=== PATIENT | male | born 1985 | race Caucasian/White ===

== ENCOUNTER 2020-08-17 21:39 | Emergency (ER) | payer MEDICAID ==
[2020-08-17] MEDS ORDERED: Baclofen 10 MG Tab PO ONE (22:04)
[2020-08-17] MEDS ORDERED: Ibuprofen 600 MG Tab PO ONE (22:05)
--- NOTE | 2020-08-17 22:11 | EDM.PDOC ---
ED HPI GENERAL MEDICAL PROBLEM - General Chief Complaint: Back Pain or Injury Stated Complaint: BACK SPASMS Time Seen by Provider: 08/17/20 22:05 Source of Information: Reports: Patient History Limitations: Reports: No Limitations - History of Present Illness INITIAL COMMENTS - FREE TEXT/NARRATIVE: Patient complains of right upper back pain x 1 week. It feels like a muscle spas m. Pain is relieved with stretching the right arm out to his side. Denies numbness, tingling, or weakness. Patient injured his lower back after falling down stairs @2 weeks ago, but did not have upper back pain at that time. The upper back pain began @1 week after the fall. He was prescribed Flexeril for the low back injury, this does improved the upper back pain, but only for @2 hours. He has not taken any NSAIDS. Patient has a prior history of DDD and arthritis of the lumbar spine. Duration: Week(s): (1) Location: Reports: Back Severity: Moderate - Related Data Allergies Allergy/AdvReac Type Severity Reaction Status Date / Time No Known Allergies Allergy Verified 08/17/20 22:06 Home Meds: Home Meds Baclofen 10 mg PO Q8H PRN #30 tablet 08/17/20 [Rx] Ibuprofen 600 mg PO Q6H PRN #30 tablet 08/17/20 [Rx] Past Medical History Musculoskeletal History: Reports: Back Pain, Chronic (Lumbar) ED ROS GENERAL - Review of Systems Review Of Systems: Comprehensive ROS is negative, except as noted in HPI. ED EXAM, UPPER BACK/NECK PAIN - Physical Exam Exam: See Below Exam Limited By: No Limitations General Appearance: Alert, WD/WN, No Apparent Distress Ears Exam: Normal External Exam Nose Exam: Normal Inspection Throat/Mouth Exam: No Airway Compromise Head Exam: Atraumatic, Normocephalic Neck Exam: Full Range of Motion Cardiovascular/Respiratory: Regular Rate, Rhythm, No M/R/G, Normal Breath Sounds, No Respiratory Distress Back Exam: Other (mild tenderness overlying right rhomboid muscle). No: Vertebral Tenderness Extremities: Normal Range of Motion, Normal Capillary Refill Neurologic: No Motor/Sensory Deficits, Alert, Normal Mood/Affect, Oriented x 3 DTR: 2+: Bicep (R), Bicep (L) Psychiatric: Normal Affect, Normal Mood Skin Exam: Normal Color, Warm/Dry Course - Vital Signs Last Recorded V/S: Last Vital Signs Temp 36.6 C 08/17/20 21:55 Pulse 84 08/17/20 21:55 Resp 18 08/17/20 21:55 BP 143/73 H 08/17/20 21:55 Pulse Ox 98 08/17/20 21:55 - Orders/Labs/Meds Meds: Medications Discontinued Medications Generic Name Dose Route Start Last Admin Trade Name Freq PRN Reason Stop Dose Admin Baclofen 10 mg 08/17/20 22:04 Lioresal PO 08/17/20 22:05 ONETIME ONE Ibuprofen 600 mg 08/17/20 22:05 Motrin PO 08/17/20 22:06 ONETIME ONE Departure - Departure Time of Disposition: 22:13 Disposition: Home, Self-Care 01 Condition: Good Clinical Impression: Upper back pain on right side - Discharge Information *PRESCRIPTION DRUG MONITORING PROGRAM REVIEWED*: Yes *COPY OF PRESCRIPTION DRUG MONITORING REPORT IN PATIENT JACKI: Not Applicable Prescriptions: Baclofen 10 mg PO Q8H PRN #30 tablet PRN Reason: Muscle Spasm Ibuprofen 600 mg PO Q6H PRN #30 tablet PRN Reason: Pain Instructions: Acute Back Pain, Adult, Muscle Strain, [id number] Forms: ED Department Discharge Additional Instructions: Fill the prescriptions for Baclofen and Ibuprofen at [facility] and take as directed. Follow up with your primary physician in 2-3 days if symptoms don't improve. Sepsis Event Note (ED) - Focused Exam Vital Signs: Vital Signs Temp Pulse Resp BP Pulse Ox 08/17/20 21:55 36.6 C 84 18 143/73 H 98
== END 2020-08-17 22:25 | disposition home or self-care (01) ==
LOC: FB.ED 21:39
DX: M54.6 Pain in thoracic spine (principal)
CPT/HCPCS: 99283; A9270-GY

== ENCOUNTER 2020-09-11 05:16 | Emergency (ER) | payer MEDICAID ==
[2020-09-11] MEDS ORDERED: Ketorolac 60 MG/2 ML SDV IM STA (06:00)
[2020-09-11] MEDS ORDERED: Cyclobenzaprine 10 MG Tab PO STA (06:00)
[2020-09-11] MEDS ORDERED: predniSONE 20 MG Tab PO STA (06:09)
--- NOTE | 2020-09-11 06:09 | EDM.PDOC ---
ED HPI GENERAL MEDICAL PROBLEM - General Chief Complaint: Back Pain or Injury Stated Complaint: BACK PAIN Time Seen by Provider: 09/11/20 05:30 Source of Information: Reports: Patient History Limitations: Reports: No Limitations - History of Present Illness INITIAL COMMENTS - FREE TEXT/NARRATIVE: Patient presented to the ED because of upper back pain. He fell sometime in Aug and since then his back has been hurting. The pain is sharp,8/10, and worse with movements. He is taking tylenol and baclofen without relief. Upper back Pain Score (Numeric/FACES): 8 - Related Data Allergies Allergy/AdvReac Type Severity Reaction Status Date / Time No Known Allergies Allergy Verified 09/11/20 05:32 Home Meds: Home Meds Baclofen 10 mg PO Q8H PRN #30 tablet 08/17/20 [Rx] Ibuprofen 600 mg PO Q6H PRN #30 tablet 08/17/20 [Rx] Ibuprofen 800 mg PO Q8H PRN #30 tablet 09/11/20 [Rx] predniSONE [Prednisone] 40 mg PO DAILY #10 tablet 09/11/20 [Rx] Past Medical History Gastrointestinal History: Reports: GERD Musculoskeletal History: Reports: Back Pain, Chronic, Fracture Other Musculoskeletal History: hx fx bilat wrists Psychiatric History: Reports: Anxiety, Depression Endocrine/Metabolic History: Reports: Obesity/BMI 30+ - Infectious Disease History Infectious Disease History: Reports: Chicken Pox - Past Surgical History HEENT Surgical History: Reports: Myringotomy w Tube(s), Tonsillectomy GI Surgical History: Reports: None Musculoskeletal Surgical History: Reports: None Social & Family History - Family History Family Medical History: No Pertinent Family History - Tobacco Use Tobacco Use Status *Q: Current Some Day Tobacco User Years of Tobacco use: 4 Packs/Tins Daily: 0.1 - Caffeine Use Caffeine Use: Reports: Soda, Tea - Alcohol Use Days Per Week of Alcohol Use: 7 Number of Drinks Per Day: 3 Total Drinks Per Week: 21 - Recreational Drug Use Recreational Drug Use: No ED ROS GENERAL - Review of Systems Review Of Systems: See Below Constitutional: Reports: No Symptoms HEENT: Reports: No Symptoms Respiratory: Reports: No Symptoms Cardiovascular: Reports: No Symptoms Endocrine: Reports: No Symptoms GI/Abdominal: Reports: No Symptoms : Reports: No Symptoms Musculoskeletal: Reports: Back Pain Skin: Reports: No Symptoms Neurological: Reports: No Symptoms Psychiatric: Reports: No Symptoms ED EXAM, UPPER BACK/NECK PAIN - Physical Exam Exam: See Below Exam Limited By: No Limitations General Appearance: Alert, No Apparent Distress Eye Exam: Bilateral Eye: PERRL Ears Exam: Normal External Exam, Normal Canal Nose Exam: Normal Inspection, Normal Mucousa, No Blood Throat/Mouth Exam: Normal Inspection, Normal Lips Head Exam: Atraumatic, Normocephalic Neck Exam: Non-Tender, Full Range of Motion, Normal Alignment Cardiovascular/Respiratory: Regular Rate, Rhythm, No M/R/G, Normal Peripheral Pulses, No JVD, Normal Breath Sounds, No Respiratory Distress GI/Abdominal: Normal Bowel Sounds, Soft, Non-Tender, No Organomegaly Back Exam: Normal Inspection, Muscle Spasm, Paraspinal Tenderness Extremities: Normal Inspection, Normal Range of Motion, Non-Tender Course - Vital Signs Text/Narrative:: Toradol 60 mg IM x1 Tramadol 100 mg PO x1 Prednisone 20 mg, 2 po x1 Flexeril 10 mg po x1 Last Recorded V/S: Last Vital Signs Temp 36.4 C 09/11/20 05:27 Pulse 71 09/11/20 05:27 Resp 18 09/11/20 05:27 BP 145/94 H 09/11/20 05:27 Pulse Ox 100 09/11/20 05:27 - Orders/Labs/Meds Meds: Medications Discontinued Medications Generic Name Dose Route Start Last Admin Trade Name Jaime PRN Reason Stop Dose Admin Cyclobenzaprine HCl 10 mg 09/11/20 06:00 09/11/20 06:16 Cyclobenzaprine 10 Mg Tab PO 09/11/20 06:01 Not Given NOW STA Ketorolac Tromethamine 60 mg 09/11/20 06:00 09/11/20 06:23 Ketorolac 60 Mg/2 Ml Sdv IM 09/11/20 06:01 60 mg NOW STA Administration Prednisone 40 mg 09/11/20 06:09 09/11/20 06:23 Prednisone 20 Mg Tab PO 09/11/20 06:10 40 mg NOW STA Administration Tramadol HCl 100 mg 09/11/20 06:14 09/11/20 06:23 Tramadol 50 Mg Tab PO 09/11/20 06:15 100 mg NOW STA Administration Departure - Departure Time of Disposition: 06:30 Disposition: Home, Self-Care 01 Condition: Good Clinical Impression: Chronic back pain - Discharge Information Prescriptions: Ibuprofen 800 mg PO Q8H PRN #30 tablet PRN Reason: Pain predniSONE [Prednisone] 40 mg PO DAILY #10 tablet Instructions: Chronic Back Pain, [id number] Referrals: PCP,Segun [Primary Care Provider] - Forms: ED Department Discharge Additional Instructions: Please read discharge instructions on back pain Apply heat Take all the following medications all at the same time for better pain relief: Ibuprofen 800mg, tylenol 1000 mg and baclofen 10 mg every 8 hours as needed for pain and spasms Prednisone 20 mg, 2 tablets every morning for 5 days(starting 09/12/20) Followup with Dr Carson because we don't do follow up in the ED Sepsis Event Note (ED) - Evaluation Sepsis Screening Result: No Definite Risk
[2020-09-11] MEDS ORDERED: traMADol 50 MG Tab PO STA (06:14)
== END 2020-09-11 06:30 | disposition home or self-care (01) ==
LOC: FB.ED 05:16
DX: G89.29 Other chronic pain (principal); M54.6 Pain in thoracic spine; E66.9 Obesity, unspecified; Z68.32 Body mass index [BMI] 32.0-32.9, adult; Z72.0 Tobacco use
CPT/HCPCS: 96372; 99283; A9270-GY; J1885; J7512

== ENCOUNTER 2021-01-23 07:54 | Emergency (ER) | payer BC, MEDICAID ==
[2021-01-23] MEDS ORDERED: methylPREDNISolone Sodium Succinate 125 MG/2 ML SDV IM ONE (08:37)
[2021-01-23] MEDS ORDERED: Ketorolac 30 MG/ML SDV IM ONE (08:37)
--- NOTE | 2021-01-23 08:43 | EDM.PDOC ---
ED HPI GENERAL MEDICAL PROBLEM - General Stated Complaint: BACK PAIN Time Seen by Provider: 01/23/21 08:05 Source of Information: Reports: Patient History Limitations: Reports: No Limitations - History of Present Illness INITIAL COMMENTS - FREE TEXT/NARRATIVE: c/o low back pain x 1w pain over the lower sacrum in the midline x 1w, no radiation he began a new job 2w ago, lifts over 100 lbs, usually has a partner, however 6d ago his partner did not show up and he lifted by himself he missed work the past 2d, was seen at [facility] by Margaret Piña yesterday who gave him prednisone 20 mg daily for 5 days and cyclobenzaprine 10 mg TID x 10 days he has a prior Rx for meloxicam 15 mg daily that he got 3 wks ago altho it sounds like he is not taking it he had previously gotten gabapentin 300 mg from [email or web address] and took one of those this morning an MRI of t-spine from 11-29-20 showed mild DJD, small dis protrusions at 3 levels after MRI pt referred to neurosurgery in [place] whom he will see next week, no c/o upper back pain today pt works 6:30a to 5p,m had too much pain to go to work today, he asked several times for a steroid shot which he says has helped he has gone to PT and says the just have him do stretching, heat and TENS that "I can do at home" Back Pain Score (Numeric/FACES): 6 - Related Data Allergies Allergy/AdvReac Type Severity Reaction Status Date / Time No Known Allergies Allergy Verified 09/11/20 05:32 Home Meds: Home Meds Baclofen 10 mg PO Q8H PRN #30 tablet 08/17/20 [Rx] Ibuprofen 600 mg PO Q6H PRN #30 tablet 08/17/20 [Rx] Ibuprofen 800 mg PO Q8H PRN #30 tablet 09/11/20 [Rx] predniSONE [Prednisone] 40 mg PO DAILY #10 tablet 09/11/20 [Rx] Past Medical History Gastrointestinal History: Reports: GERD Musculoskeletal History: Reports: Back Pain, Chronic, Fracture Other Musculoskeletal History: hx fx bilat wrists Psychiatric History: Reports: Anxiety, Depression Endocrine/Metabolic History: Reports: Obesity/BMI 30+ - Infectious Disease History Infectious Disease History: Reports: Chicken Pox - Past Surgical History HEENT Surgical History: Reports: Myringotomy w Tube(s), Tonsillectomy GI Surgical History: Reports: None Musculoskeletal Surgical History: Reports: None Social & Family History - Family History Family Medical History: No Pertinent Family History - Tobacco Use Tobacco Use Status *Q: Never Tobacco User Second Hand Smoke Exposure: No - Caffeine Use Caffeine Use: Reports: None - Recreational Drug Use Recreational Drug Use: No ED ROS GENERAL - Review of Systems Review Of Systems: See Below Constitutional: Reports: No Symptoms HEENT: Reports: No Symptoms Respiratory: Reports: No Symptoms Cardiovascular: Reports: No Symptoms Endocrine: Reports: No Symptoms GI/Abdominal: Reports: No Symptoms : Reports: No Symptoms Musculoskeletal: Reports: Back Pain Skin: Reports: No Symptoms Neurological: Reports: No Symptoms Psychiatric: Reports: No Symptoms Hematologic/Lymphatic: Reports: No Symptoms Immunologic: Reports: No Symptoms ED EXAM,LOWER BACK PAIN/INJURY - Physical Exam Exam: See Below Exam Limited By: No Limitations General Appearance: Alert, WD/WN Back Exam: Other (no pain along length of spine except 1+ at lower sacrum in midline at ~S3, no SI joint tender b/l, no iliac crest tender, no msl spasm) Neurological: Alert, Normal Dorsiflexion, CN II-XII Intact, Normal Reflexes, No Motor/Sensory Deficits Comments: brisk 2+ patella and Achilles DTRs b/l, great toe extension 5/5, SLR 80 degrees b/l without limitation Course - Vital Signs Last Recorded V/S: Last Vital Signs Temp 36.8 C 01/23/21 08:07 Pulse 60 01/23/21 08:07 Resp 16 01/23/21 08:07 BP 120/50 L 01/23/21 08:07 Pulse Ox 96 01/23/21 08:07 - Re-Assessments/Exams Free Text/Narrative Re-Assessment/Exam: 01/23/21 08:56 pain at sacral ligaments today has had upper back pain that sounds muscular in origin, altho not an issue today pt has incidental small disc protrusions on MRI from 2m ago of t-spine without clinical evidence of radiculopathy at any level Departure - Departure Time of Disposition: 08:36 Disposition: Home, Self-Care 01 Clinical Impression: Sacral back pain - Discharge Information *PRESCRIPTION DRUG MONITORING PROGRAM REVIEWED*: Not Applicable *COPY OF PRESCRIPTION DRUG MONITORING REPORT IN PATIENT JACKI: Not Applicable Instructions: Chronic Back Pain Additional Instructions: The pain today is over the lower sacrum in the midline, which is a ligament pain. Anti-inflammatories work best for ligament pain. For inflammation, take the meloxicam 15 mg 1 tab daily for 10 days. For inflammation, take acetaminophen 500 mg 2 tabs 3 times a day. For inflammation, continue the prednisone 20 mg 1 tab daily for 4 more days. Skip a dose today as you were given an intramuscular injection of Solu-Medrol, which is an injectable form of a steroid (prednisone only comes in a pill form). Cyclobenzaprine can be helpful for muscle pain, which you do not have today. Gabapentin can be helpful for nerve pain, which you do not have today. Ice (and sometimes heat) can be helpful for inflammation. Use ice for 10 minutes when you get home from work and again later in the evening. Ice can help during the middle of the day as well. See Dr Magallanes next week for ongoing recommendations. See the neurosurgeon next week as scheduled. Sepsis Event Note (ED) - Evaluation Sepsis Screening Result: No Definite Risk - Focused Exam Vital Signs: Vital Signs Temp Pulse Resp BP Pulse Ox 01/23/21 08:07 36.8 C 60 16 120/50 L 96
== END 2021-01-23 08:55 | disposition home or self-care (01) ==
LOC: FB.ED 07:54
DX: M53.3 Sacrococcygeal disorders, not elsewhere classified (principal); E66.9 Obesity, unspecified; Z68.34 Body mass index [BMI] 34.0-34.9, adult
CPT/HCPCS: 96372; 99283; J1885; J2930

== ENCOUNTER 2021-03-28 07:46 | Emergency (ER) | payer MEDICAID ==
[2021-03-28] MEDS ORDERED: Ondansetron 4 MG/2 ML SDV IVPUSH ONE (08:04)
[2021-03-28] MEDS ORDERED: Ketorolac 30 MG/ML SDV IVPUSH ONE (08:05)
[2021-03-28] MEDS ORDERED: diphenhydrAMINE 50 MG/ML SDV IVPUSH ONE (08:05)
--- NOTE | 2021-03-28 08:14 | EDM.PDOC ---
ED HPI GENERAL MEDICAL PROBLEM - General Chief Complaint: General Stated Complaint: ALLERGIC REACTION Time Seen by Provider: 03/28/21 07:55 Source of Information: Reports: Patient, Family History Limitations: Reports: No Limitations - History of Present Illness INITIAL COMMENTS - FREE TEXT/NARRATIVE: c/o n/v pt with panic attacks, last occurred 1w ago and went away on his own has been working x 6m with counseling at [facility] [facility] in [place], has been going as well [facility] began him on Lexapro 3d ago, had been on 2 other SSRIs in the past per works at [employer] ate supper last night, works 10p to 5a, felt fine until 4a when developed N, later vomiting says he feels like he is vibrating, hands are tingling, hyperventilating, was impatient and impolite with RN PMH: bipolar, anxiety, panic attacks per pt PCP: Dr Hanna, last saw 2m ago drinks alcohol daily, usually hard liquor, no alcohol in past 3d Bilateral Hand Pain Score (Numeric/FACES): 10 - Related Data Allergies Allergy/AdvReac Type Severity Reaction Status Date / Time No Known Allergies Allergy Verified 09/11/20 05:32 Home Meds: Home Meds Escitalopram Oxalate 5 mg PO DAILY 03/28/21 [History] Ondansetron [Ondansetron ODT] 4 mg PO Q6H PRN #8 tab.rapdis 03/28/21 [Rx] Potassium Chloride 20 meq PO DAILY #3 tablet.er 03/28/21 [Rx] QUEtiapine [SEROquel] 50 mg PO DAILY PRN 03/28/21 [History] hydrOXYzine HCL [Hydroxyzine HCl] 25 mg PO ASDIRECTED PRN 03/28/21 [History] Past Medical History Gastrointestinal History: Reports: GERD Musculoskeletal History: Reports: Back Pain, Chronic, Fracture Other Musculoskeletal History: hx fx bilat wrists Psychiatric History: Reports: Anxiety, Depression Endocrine/Metabolic History: Reports: Obesity/BMI 30+ - Infectious Disease History Infectious Disease History: Reports: Chicken Pox - Past Surgical History HEENT Surgical History: Reports: Myringotomy w Tube(s), Tonsillectomy GI Surgical History: Reports: None Musculoskeletal Surgical History: Reports: None Social & Family History - Family History Family Medical History: No Pertinent Family History - Caffeine Use Caffeine Use: Reports: None ED ROS GENERAL - Review of Systems Review Of Systems: See Below Constitutional: Reports: No Symptoms HEENT: Reports: No Symptoms Respiratory: Reports: No Symptoms Cardiovascular: Reports: No Symptoms Endocrine: Reports: No Symptoms GI/Abdominal: Reports: No Symptoms : Reports: No Symptoms Musculoskeletal: Reports: No Symptoms Skin: Reports: No Symptoms Neurological: Reports: No Symptoms Psychiatric: Reports: No Symptoms Hematologic/Lymphatic: Reports: No Symptoms Immunologic: Reports: No Symptoms ED EXAM, GENERAL - Physical Exam Exam: See Below Exam Limited By: No Limitations General Appearance: Alert, WD/WN, Anxious Ears: Normal External Exam, Hearing Grossly Normal Ear Exam: Bilateral Ear: Auricle Normal, Canal Normal, TM normal Nose: Normal Inspection, Normal Mucosa, No Blood Throat/Mouth: Normal Inspection, Normal Lips, Normal Teeth, Normal Voice, No Airway Compromise Head: Atraumatic, Normocephalic Neck: Normal Inspection, Supple, Non-Tender, Full Range of Motion Respiratory/Chest: No Respiratory Distress, Lungs Clear, Normal Breath Sounds, No Accessory Muscle Use Cardiovascular: Normal Peripheral Pulses, Regular Rate, Rhythm, No Edema, No Gallop, No Rub GI/Abdominal: Normal Bowel Sounds, Soft, Non-Tender, No Organomegaly, No Distention, No Mass Back Exam: Normal Inspection, Full Range of Motion, NT Extremities: Normal Inspection, Normal Range of Motion, Non-Tender, No Pedal Edema Neurological: Alert, Oriented, CN II-XII Intact, Normal Cognition, Normal Gait, No Motor/Sensory Deficits Psychiatric: Anxious Skin Exam: Warm, Dry, Intact, Normal Color, No Rash Lymphatic: No Adenopathy Course - Vital Signs Last Recorded V/S: Last Vital Signs Temp 36.2 C 03/28/21 07:47 Pulse 61 03/28/21 07:47 Resp 32 H 03/28/21 07:47 BP 154/81 H 03/28/21 07:47 Pulse Ox 100 03/28/21 07:47 - Orders/Labs/Meds Orders: Active Orders 24 hr Category Date Time Status DRUG SCREEN, URINE [URCHEM] Stat Lab 03/28/21 08:08 Ordered UA W/MICROSCOPIC [URIN] Stat Lab 03/28/21 08:08 Ordered Sodium Chloride 0.9% [Normal Saline] 1,000 ml Med 03/28/21 08:15 Ordered IV ASDIRECTED Sodium Chloride 0.9% [Normal Saline] 1,000 ml Med 03/28/21 09:15 Ordered IV ASDIRECTED Medication Orders Sodium Chloride (Normal Saline) 1,000 mls @ 999 mls/hr IV ASDIRECTED ARISTEO Last Admin: 03/28/21 08:18 Dose: 999 mls/hr Documented by: ELSA Sodium Chloride (Normal Saline) 1,000 mls @ 999 mls/hr IV ASDIRECTED ARISTEO Labs: Laboratory Tests 03/28/21 03/28/21 03/28/21 Range/Units 08:22 08:22 08:22 WBC 11.5 H (3.2-10.1) x10-3/uL RBC 5.07 (3.90-5.90) x10(6)uL Hgb 15.5 (12.9-17.7) g/dL Hct 45.4 (38.3-50.1) % MCV 89.5 (80.8-98.7) fL MCH 30.6 (27.0-33.3) pg MCHC 34.2 (28.7-35.3) g/dL RDW 13.8 (12.4-15.0) % Plt Count 226 (117-477) x10(3)uL MPV 10.8 (6.7-11.0) fL Neut % (Auto) 68.4 (40.3-71.8) % Lymph % (Auto) 21.5 (15.8-45.3) % [place] % (Auto) 8.9 (5.5-15.2) % Eos % (Auto) 0.8 (0.1-6.8) % Baso % (Auto) 0.4 (0.3-3.8) % Neut # (Auto) 7.9 H (1.7-6.9) x10-3/uL Lymph # (Auto) 2.5 (0.5-4.5) x10-3/uL [place] # (Auto) 1.0 (0.0-1.2) x10-3/uL Eos # (Auto) 0.1 (0.0-0.6) x10-3/uL Baso # (Auto) 0.1 (0.0-0.3) x10-3/uL Sodium 139 (135-145) mmol/L Potassium 3.4 L (3.5-5.3) mmol/L Chloride 104 (100-110) mmol/L Carbon Dioxide 15 L (21-32) mmol/L BUN 15 (7-18) mg/dL Creatinine 1.3 (0.70-1.30) mg/dL Est Cr Clr Drug Dosing 84.47 mL/min Estimated GFR (MDRD) > 60 (>60) BUN/Creatinine Ratio 11.5 (9-20) Glucose 170 H (80-116) mg/dL Calcium 9.1 (8.6-10.2) mg/dL Total Bilirubin 1.4 H (0.1-1.3) mg/dL AST 35 H (5-25) IU/L ALT 40 H (12-36) U/L Alkaline Phosphatase 70 (56-112) IU/L C-Reactive Protein 0.4 L (0.5-0.9) mg/dL Total Protein 7.6 (6.0-8.0) g/dL Albumin 4.3 (3.5-5.2) g/dL Globulin 3.3 g/dL Albumin/Globulin Ratio 1.3 TSH, Ultra Sensitive (0.36-3.74) IU/mL 03/28/21 Range/Units 08:37 WBC (3.2-10.1) x10-3/uL RBC (3.90-5.90) x10(6)uL Hgb (12.9-17.7) g/dL Hct (38.3-50.1) % MCV (80.8-98.7) fL MCH (27.0-33.3) pg MCHC (28.7-35.3) g/dL RDW (12.4-15.0) % Plt Count (117-477) x10(3)uL MPV (6.7-11.0) fL Neut % (Auto) (40.3-71.8) % Lymph % (Auto) (15.8-45.3) % [place] % (Auto) (5.5-15.2) % Eos % (Auto) (0.1-6.8) % Baso % (Auto) (0.3-3.8) % Neut # (Auto) (1.7-6.9) x10-3/uL Lymph # (Auto) (0.5-4.5) x10-3/uL [place] # (Auto) (0.0-1.2) x10-3/uL Eos # (Auto) (0.0-0.6) x10-3/uL Baso # (Auto) (0.0-0.3) x10-3/uL Sodium (135-145) mmol/L Potassium (3.5-5.3) mmol/L Chloride (100-110) mmol/L Carbon Dioxide (21-32) mmol/L BUN (7-18) mg/dL Creatinine (0.70-1.30) mg/dL Est Cr Clr Drug Dosing mL/min Estimated GFR (MDRD) (>60) BUN/Creatinine Ratio (9-20) Glucose (80-116) mg/dL Calcium (8.6-10.2) mg/dL Total Bilirubin (0.1-1.3) mg/dL AST (5-25) IU/L ALT (12-36) U/L Alkaline Phosphatase (56-112) IU/L C-Reactive Protein (0.5-0.9) mg/dL Total Protein (6.0-8.0) g/dL Albumin (3.5-5.2) g/dL Globulin g/dL Albumin/Globulin Ratio TSH, Ultra Sensitive 1.60 (0.36-3.74) IU/mL Meds: Medications Generic Name Dose Route Start Last Admin Trade Name Freq PRN Reason Stop Dose Admin Sodium Chloride 1,000 mls @ 999 mls/hr 03/28/21 08:15 03/28/21 08:18 Normal Saline IV 999 mls/hr ASDIRECTED ARISTEO Administration Sodium Chloride 1,000 mls @ 999 mls/hr 03/28/21 09:15 Normal Saline IV ASDIRECTED ARISTEO Discontinued Medications Generic Name Dose Route Start Last Admin Trade Name Freq PRN Reason Stop Dose Admin Diphenhydramine HCl 50 mg 03/28/21 08:05 03/28/21 08:18 Diphenhydramine 50 Mg/Ml Sdv IVPUSH 03/28/21 08:06 50 mg ONETIME ONE Administration Ketorolac Tromethamine 30 mg 03/28/21 08:05 03/28/21 08:18 Ketorolac 30 Mg/Ml Sdv IVPUSH 03/28/21 08:06 30 mg ONETIME ONE Administration Metoclopramide HCl 10 mg 03/28/21 08:38 03/28/21 08:44 Metoclopramide 10 Mg/2 Ml Sdv IVPUSH 03/28/21 08:39 10 mg ONETIME ONE Administration Ondansetron HCl 4 mg 03/28/21 08:04 03/28/21 08:18 Ondansetron 4 Mg/2 Ml Sdv IVPUSH 03/28/21 08:05 4 mg ONETIME ONE Administration - Re-Assessments/Exams Free Text/Narrative Re-Assessment/Exam: 03/28/21 09:51 pt rested and fell asleep, Dr Magallanes PCP is on hospital duty and was informed of pt's visit arranged f/u with Vivian Velasquez PA-C at [facility] in 3d had a Zoom meeting with Vivian at 9a today and conducted the meeting while pt was here resting I requested to speak with Vivian and left my name and phone number altho did not receive a call back, not clear if passed along my message I called Vivian at 8:59a, was told she was with a client, and requested a call back will replace K will provide prn ondansetron will do scheduled (rather than prn) quetiapine and hydroxyzine pending further d/w Vivian in 3d 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, always hyster machine operator, 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 pt and aware that he can return to ED at any time if his sxs worsen 03/28/21 10:30 Vivian called back, given an update on pt's panic attack and labs and tx plan, she said she would f/u in 3 days at f/u visit Departure - Departure Time of Disposition: 09:42 Disposition: Home, Self-Care 01 Condition: Good Clinical Impression: Panic attack, Elevated WBC count, Serum carbon dioxide decreased, Dehydration, Hyperglycemia, Elevated liver function tests, Hypokalemia - Discharge Information *PRESCRIPTION DRUG MONITORING PROGRAM REVIEWED*: Not Applicable *COPY OF PRESCRIPTION DRUG MONITORING REPORT IN PATIENT JACKI: Not Applicable Prescriptions: Ondansetron [Ondansetron ODT] 4 mg PO Q6H PRN #8 tab.rapdis PRN Reason: Nausea Potassium Chloride 20 meq PO DAILY #3 tablet.er Instructions: Managing Anxiety, Adult, Rehydration, Adult, Panic Attack Referrals: Nolan Hanna DO [Primary Care Provider] - Forms: ED Department Discharge Additional Instructions: Increase fluids. Get adequate rest. To replace potassium, take potassium chloride 20 meq 1 tab daily for 3 days. For nausea, take ondansetron ODT 4 mg 1 tab every 6 hours as needed. For sleep, take quetiapine 50 mg at time of sleep daily for 4 days until you receive additional instructions from Vivian. For anxiety, take hydroxyzine 25 mg 2 tabs 3 times a day for 4 days until you receive additional instructions from Vivian. May work tonight if you rest today and are feeling better this evening. Return to Emergency Department if you are feeling worse. Sepsis Event Note (ED) - Evaluation Sepsis Screening Result: No Definite Risk - Focused Exam Vital Signs: Vital Signs Temp Pulse Resp BP Pulse Ox 03/28/21 07:47 36.2 C 61 32 H 154/81 H 100 - My Orders Last 24 Hours: My Active Orders 03/28/21 08:08 DRUG SCREEN, URINE [URCHEM] Stat UA W/MICROSCOPIC [URIN] Stat 03/28/21 08:15 Sodium Chloride 0.9% [Normal Saline] 1,000 ml IV ASDIRECTED 03/28/21 09:15 Sodium Chloride 0.9% [Normal Saline] 1,000 ml IV ASDIRECTED - Assessment/Plan Last 24 Hours: My Active Orders 03/28/21 08:08 DRUG SCREEN, URINE [URCHEM] Stat UA W/MICROSCOPIC [URIN] Stat 03/28/21 08:15 Sodium Chloride 0.9% [Normal Saline] 1,000 ml IV ASDIRECTED 03/28/21 09:15 Sodium Chloride 0.9% [Normal Saline] 1,000 ml IV ASDIRECTED
[2021-03-28] MEDS ORDERED: Sodium Chloride 0.9% 1,000 ML IV SCH ×2 (08:15→09:15)
[2021-03-28] MEDS ORDERED: Metoclopramide 10 MG/2 ML SDV IVPUSH ONE (08:38)
== END 2021-03-28 09:58 | disposition home or self-care (01) ==
LOC: FB.ED 07:46 → SUPCPDRO 07:46 → FB.ED 09:58
DX: E86.0 Dehydration (principal); F41.0 Panic disorder [episodic paroxysmal anxiety]; D72.829 Elevated white blood cell count, unspecified; R73.9 Hyperglycemia, unspecified; E87.6 Hypokalemia; E66.9 Obesity, unspecified; Z68.30 Body mass index [BMI] 30.0-30.9, adult; Z79.899 Other long term (current) drug therapy
CPT/HCPCS: 36415; 80053; 84443; 85025; 86140; 96374; 96375; 99284; J1200; J1885; J2405; J2765; J7030

== ENCOUNTER 2021-04-01 09:08 | Emergency (ER) | payer MEDICAID ==
[2021-04-01] MEDS ORDERED: Ondansetron 4 MG/2 ML SDV IVPUSH ONE (09:15)
[2021-04-01] MEDS ORDERED: LORazepam 2 MG/ML SDV IV ONE (09:33)
[2021-04-01] MEDS: Ondansetron 4 MG/2 ML SDV ONE ×2 (09:39→09:45)
[2021-04-01] MEDS ORDERED: Sodium Chloride 0.9% 1,000 ML IV SCH (09:45)
[2021-04-01] MEDS ORDERED: Pantoprazole 40 MG Vial IVPUSH STA (10:17)
[2021-04-01] MEDS ORDERED: Metoclopramide 10 MG/2 ML SDV IVPUSH STA (10:17)
[2021-04-01] MEDS ORDERED: Diazepam 5 MG Tab PO STA (10:20)
--- NOTE | 2021-04-01 10:26 | EDM.PDOC ---
ED HPI GENERAL MEDICAL PROBLEM - General Chief Complaint: Gastrointestinal Problem Stated Complaint: N/V Time Seen by Provider: 04/01/21 09:10 Source of Information: Reports: Patient, Family History Limitations: Reports: No Limitations - History of Present Illness INITIAL COMMENTS - FREE TEXT/NARRATIVE: Patient presented to the ED because of binge drinking whiskey but quit 8 days ago. He c/o epigastric pain, nausea, vomiting. He has a history of alcoholism and has been drinking since his teenage life. Abdomen Pain Score (Numeric/FACES): 10 - Related Data Allergies Allergy/AdvReac Type Severity Reaction Status Date / Time No Known Allergies Allergy Verified 04/01/21 09:31 Home Meds: Home Meds QUEtiapine [SEROquel] 50 mg PO DAILY PRN 03/28/21 [History] hydrOXYzine HCL [Hydroxyzine HCl] 25 mg PO ASDIRECTED PRN 03/28/21 [History] Metoclopramide HCl [Reglan] 10 mg PO Q8H #30 tablet 04/01/21 [Rx] Omeprazole 20 mg PO DAILY 60 Days #60 capsule. 04/01/21 [Rx] Past Medical History Gastrointestinal History: Reports: GERD Musculoskeletal History: Reports: Back Pain, Chronic, Fracture Other Musculoskeletal History: hx fx bilat wrists Psychiatric History: Reports: Anxiety, Depression Endocrine/Metabolic History: Reports: Obesity/BMI 30+ - Infectious Disease History Infectious Disease History: Reports: Chicken Pox - Past Surgical History HEENT Surgical History: Reports: Myringotomy w Tube(s), Tonsillectomy GI Surgical History: Reports: None Musculoskeletal Surgical History: Reports: None Social & Family History - Family History Family Medical History: No Pertinent Family History - Caffeine Use Caffeine Use: Reports: Soda - Alcohol Use Date of Last Drink: 03/24/21 ED ROS GENERAL - Review of Systems Review Of Systems: See Below Constitutional: Reports: No Symptoms HEENT: Reports: No Symptoms Respiratory: Reports: No Symptoms Cardiovascular: Reports: No Symptoms Endocrine: Reports: No Symptoms GI/Abdominal: Reports: Abdominal Pain, Nausea, Vomiting Musculoskeletal: Reports: No Symptoms Skin: Reports: No Symptoms Neurological: Reports: No Symptoms Psychiatric: Reports: No Symptoms ED EXAM, GENERAL - Physical Exam Exam: See Below Exam Limited By: No Limitations General Appearance: Alert, No Apparent Distress Eye Exam: Bilateral Eye: PERRL Ears: Normal External Exam, Normal Canal Nose: Normal Inspection, Normal Mucosa, No Blood Throat/Mouth: Normal Inspection, Normal Lips, Normal Teeth Head: Atraumatic, Normocephalic Neck: Normal Inspection, Supple, Non-Tender, Full Range of Motion Respiratory/Chest: No Respiratory Distress, Lungs Clear, Normal Breath Sounds, No Accessory Muscle Use, Chest Non-Tender Cardiovascular: Normal Peripheral Pulses, Regular Rate, Rhythm, No Edema, No Gallop, No JVD, No Murmur, No Rub GI/Abdominal: Normal Bowel Sounds, Soft, Non-Tender, No Organomegaly, No Distention, No Abnormal Bruit, No Mass Back Exam: Normal Inspection, Full Range of Motion Extremities: Normal Inspection, Normal Range of Motion, Non-Tender, No Pedal Edema, Normal Capillary Refill Neurological: Alert, Oriented, CN II-XII Intact, Normal Cognition, Normal Reflexes, No Motor/Sensory Deficits Psychiatric: Normal Affect Skin Exam: Warm Course - Vital Signs Text/Narrative:: Lab result was reviewed was discussed with patient and D5.9 NS 1 L bolus Zofran 4 mg IV x2 Thiamine 100 mg IV x1 Ativan 1 mg IV x1 Valium 10 mg PO x1 Reglan 10 mg IV x1 pantoprazole 80 mg IV x1 Last Recorded V/S: Last Vital Signs Temp 36.6 C 04/01/21 13:43 Pulse 73 04/01/21 13:43 Resp 18 04/01/21 13:43 BP 162/79 H 04/01/21 09:08 Pulse Ox 98 04/01/21 13:43 - Orders/Labs/Meds Labs: Laboratory Tests 04/01/21 04/01/21 Range/Units 09:40 09:40 WBC 9.7 (3.2-10.1) x10-3/uL RBC 5.08 (3.90-5.90) x10(6)uL Hgb 15.5 (12.9-17.7) g/dL Hct 45.5 (38.3-50.1) % MCV 89.6 (80.8-98.7) fL MCH 30.4 (27.0-33.3) pg MCHC 33.9 (28.7-35.3) g/dL RDW 13.8 (12.4-15.0) % Plt Count 204 (117-477) x10(3)uL MPV 10.4 (6.7-11.0) fL Neut % (Auto) 59.9 (40.3-71.8) % Lymph % (Auto) 26.1 (15.8-45.3) % [place] % (Auto) 13.1 (5.5-15.2) % Eos % (Auto) 0.5 (0.1-6.8) % Baso % (Auto) 0.4 (0.3-3.8) % Neut # (Auto) 5.8 (1.7-6.9) x10-3/uL Lymph # (Auto) 2.5 (0.5-4.5) x10-3/uL [place] # (Auto) 1.3 H (0.0-1.2) x10-3/uL Eos # (Auto) 0.1 (0.0-0.6) x10-3/uL Baso # (Auto) 0.0 (0.0-0.3) x10-3/uL Sodium 142 (135-145) mmol/L Potassium 3.0 L (3.5-5.3) mmol/L Chloride 103 (100-110) mmol/L Carbon Dioxide 24 (21-32) mmol/L BUN 14 (7-18) mg/dL Creatinine 1.5 H (0.70-1.30) mg/dL Est Cr Clr Drug Dosing TNP Estimated GFR (MDRD) 53 L (>60) BUN/Creatinine Ratio 9.3 (9-20) Glucose 135 H (80-116) mg/dL Calcium 8.8 (8.6-10.2) mg/dL Total Bilirubin 1.3 (0.1-1.3) mg/dL AST 48 H D (5-25) IU/L ALT 89 H D (12-36) U/L Alkaline Phosphatase 65 (56-112) IU/L Total Protein 6.9 (6.0-8.0) g/dL Albumin 3.7 (3.5-5.2) g/dL Globulin 3.2 g/dL Albumin/Globulin Ratio 1.2 Meds: Medications Discontinued Medications Generic Name Dose Route Start Last Admin Trade Name Freq PRN Reason Stop Dose Admin Diazepam 10 mg 04/01/21 10:20 04/01/21 10:25 Diazepam 5 Mg Tab PO 04/01/21 10:21 10 mg NOW STA Administration Sodium Chloride 1,000 mls @ 999 mls/hr 04/01/21 09:45 04/01/21 09:38 Normal Saline IV 999 mls/hr ASDIRECTED ARISTEO Administration Lorazepam 1 mg 04/01/21 09:33 04/01/21 09:46 Lorazepam 2 Mg/Ml Sdv IV 04/01/21 09:34 1 mg ONETIME ONE Administration Metoclopramide HCl 10 mg 04/01/21 10:17 04/01/21 10:25 Metoclopramide 10 Mg/2 Ml Sdv IVPUSH 04/01/21 10:18 10 mg NOW STA Administration Ondansetron HCl Confirm 04/01/21 09:21 04/01/21 09:45 Ondansetron 4 Mg/2 Ml Sdv Administered 04/01/21 09:22 Not Given Dose 4 mg .ROUTE .STK-MED ONE Ondansetron HCl 4 mg 04/01/21 09:15 04/01/21 09:23 Ondansetron 4 Mg/2 Ml Sdv IVPUSH 04/01/21 09:16 4 mg ONETIME ONE Administration Pantoprazole Sodium 80 mg 04/01/21 10:17 04/01/21 10:26 Pantoprazole 40 Mg Vial IVPUSH 04/01/21 10:18 80 mg NOW STA Administration Pantoprazole Sodium Confirm 04/01/21 10:28 04/01/21 11:13 Pantoprazole 40 Mg Vial Administered 04/01/21 10:29 Not Given Dose 40 mg .ROUTE .STK-MED ONE Departure - Departure Time of Disposition: 11:00 Disposition: Home, Self-Care 01 Condition: Good Clinical Impression: GERD (gastroesophageal reflux disease), SHAWN (generalized anxiety disorder), Panic attack, Alcohol abuse - Discharge Information Prescriptions: Omeprazole 20 mg PO DAILY 60 Days #60 capsule. Metoclopramide HCl [Reglan] 10 mg PO Q8H #30 tablet Instructions: Generalized Anxiety Disorder, Adult, Food Choices for Gastroesophageal Reflux Disease, Adult, Panic Attack Referrals: PCP,None [Primary Care Provider] - Forms: ED Department Discharge Additional Instructions: Please read discharge instructions on GERD,Anxiety Avoid the food and beverages that can make your GERD/Acid reflux worse Take your escitalopram again as prescribed.It's for your maintenance for anxiety Omeprazole 20 mg, 2 tablets daily for 1 week then take 1 tablet daily thereafter Follow up as needed
[2021-04-01] MEDS ORDERED: Pantoprazole 40 MG Vial ONE (10:28)
== END 2021-04-01 13:45 | disposition home or self-care (01) ==
LOC: FB.ED 09:08
DX: K21.9 Gastro-esophageal reflux disease without esophagitis (principal); F41.0 Panic disorder [episodic paroxysmal anxiety]; F10.10 Alcohol abuse, uncomplicated
CPT/HCPCS: 36415; 80053; 85025; 96374; 96375; 99284; A9270; C9113; J2060; J2405; J2765; J7030

== ENCOUNTER 2021-09-29 22:58 | Emergency (ER) | payer BC, MEDICAID ==
[2021-09-29] MEDS: Sodium Chloride 0.9% 1,000 ML IV ONE (23:36)
[2021-09-29] MEDS: Metoclopramide 10 MG/2 ML SDV IVPUSH ONE (23:37)
[2021-09-29] MEDS: Ketorolac 30 MG/ML SDV IVPUSH ONE (23:47)
[2021-09-29] MEDS: diphenhydrAMINE 50 MG/ML SDV IVPUSH ONE (23:54)
== END 2021-09-30 01:25 | disposition home or self-care (01) ==
LOC: FB.ED 22:58
DX: M62.830 Muscle spasm of back (principal); K21.9 Gastro-esophageal reflux disease without esophagitis; E66.9 Obesity, unspecified; Z68.30 Body mass index [BMI] 30.0-30.9, adult
CPT/HCPCS: 36415; 80053; 83690; 83735; 85025; 86140; 96374; 96375; 99283; 99283-25; J1200; J1885; J2765; J7030

== ENCOUNTER 2022-04-19 08:02 | Emergency (ER) | payer MEDICAID | END 2022-04-19 09:48 | disposition home or self-care (01) | LOC: FB.ED 08:02 | DX: B89 Unspecified parasitic disease (principal); E66.9 Obesity, unspecified; Z68.27 Body mass index [BMI] 27.0-27.9, adult; Z87.891 Personal history of nicotine dependence | CPT/HCPCS: 99282 ==

== ENCOUNTER 2022-04-30 17:02 | Emergency (ER) | payer MEDICAID | END 2022-04-30 17:30 | disposition left against medical advice (07) | LOC: FB.ED 17:02 | DX: G89.29 Other chronic pain (principal); M54.9 Dorsalgia, unspecified; E66.9 Obesity, unspecified; Z68.27 Body mass index [BMI] 27.0-27.9, adult; Z79.899 Other long term (current) drug therapy | CPT/HCPCS: 99283 ==

== ENCOUNTER 2022-05-07 04:05 | Emergency (ER) | payer MEDICAID ==
[2022-05-07] MEDS ORDERED: Ketorolac 30 MG/ML SDV IM ONE (05:34)
[2022-05-07] MEDS ORDERED: diphenhydrAMINE 50 MG/ML SDV IM ONE (05:34)
== END 2022-05-07 05:56 | disposition home or self-care (01) ==
LOC: FB.ED 04:05
DX: M54.50 Low back pain, unspecified (principal); F17.210 Nicotine dependence, cigarettes, uncomplicated; E66.9 Obesity, unspecified; Z68.28 Body mass index [BMI] 28.0-28.9, adult; Z79.899 Other long term (current) drug therapy
CPT/HCPCS: 96372; 99283; J1200; J1885

== ENCOUNTER 2024-04-12 16:48 | Emergency (ER) | payer MEDICAID, OTHER ==
[2024-04-12] MEDS ORDERED: Lidocaine 1% 5 ML VIAL INFILT ONE (16:49)
[2024-04-12] MEDS ORDERED: Ketorolac 30 MG/ML SDV IM ONE (17:19)
== END 2024-04-12 17:50 | disposition home or self-care (01) ==
LOC: FB.ED 16:48
DX: S61.411A Laceration without foreign body of right hand, initial encounter (principal); E66.9 Obesity, unspecified; Z68.29 Body mass index [BMI] 29.0-29.9, adult; X58.XXXA Exposure to other specified factors, initial encounter
CPT/HCPCS: 12001; 99282

== ENCOUNTER 2024-11-18 21:01 | Emergency (ER) | payer SELFPAY | END 2024-11-18 21:35 | disposition left against medical advice (07) | LOC: FB.ED 21:01 → MERGE 21:01 → EDBD 21:01 → FB.ED 21:35 | DX: Z53.21 Procedure and treatment not carried out due to patient leaving prior to being seen by health care provider (principal) ==

== ENCOUNTER 2024-12-31 13:05 | Emergency (ER) | payer OTHER ==
[2024-12-31] MEDS ORDERED: Lidocaine 2% with EPINEPHrine 1:100,000 20 ML MDV INFILT ONE ×2 (13:06)
== END 2024-12-31 14:29 | disposition home or self-care (01) ==
LOC: FB.ED 13:05
DX: S61.451A Open bite of right hand, initial encounter (principal); S51.852A Open bite of left forearm, initial encounter; K21.9 Gastro-esophageal reflux disease without esophagitis; Z79.899 Other long term (current) drug therapy; W54.0XXA Bitten by dog, initial encounter
CPT/HCPCS: 12002; 99283